=== PATIENT | female | born 1995 | race Caucasian/White ===

== ENCOUNTER 2019-06-18 19:07 | Emergency (ER) | payer OTHER ==
[2019-06-18] MEDS: ACETAMINOPHEN 325 MG TAB PO (19:32)
[2019-06-18] MEDS: SOD CHLORIDE 0.9% 1,000 ML IV (19:33)
[2019-06-18] MEDS: LORAZEPAM 2 MG INJ IV (19:33)
[2019-06-18 19:57] LABS: ANION GAP 17 (5-13); BLOOD UREA NITROGEN 12 mg/dl (7-20); CALCIUM 10.1 mg/dl (8.4-10.2); CARBON DIOXIDE 18 mmol/L (21-31); CHLORIDE 104 mmol/L (97-110); CREATININE 0.87 mg/dl (0.44-1.00); Estimated GFR > 60 mL/min (>60); GLUCOSE 119 mg/dl (70-220); POTASSIUM 3.8 mmol/L (3.5-5.1); SODIUM 139 mmol/L (135-144)
== END 2019-06-18 20:53 | disposition home or self-care (01) ==
LOC: E/R 19:07
DX: G40.909 Epilepsy, unspecified, not intractable, without status epilepticus (principal); R40.2142 Coma scale, eyes open, spontaneous, at arrival to emergency department; R40.2362 Coma scale, best motor response, obeys commands, at arrival to emergency department; R40.2252 Coma scale, best verbal response, oriented, at arrival to emergency department
CPT/HCPCS: 36415; 80048; 81025; 82962; 96374; 99284-25